=== PATIENT | male | born 1990 | race Caucasian/White ===

== ENCOUNTER 2017-07-01 14:58 | Emergency (ER) | payer SELFPAY ==
[~2017-07-01] VITALS: Ht 177.8 cm; Wt 82.2 kg
[2017-07-01 15:05] VITALS: Ht 177.8 cm; Wt 82.2 kg
--- NOTE | 2017-07-01 15:44 | DIAGNOSTIC IMAGING REPORT ---
CHEST ONE VIEW PORTABLE CLINICAL HISTORY: 27 years-old Male presenting with swelling of extremities. TECHNIQUE: Portable upright AP view of the chest was obtained. COMPARISON: None. FINDINGS: Cardiomediastinal silhouette normal. Lungs and pleural spaces clear. Osseous structures normal. Upper abdomen normal. IMPRESSION: 1. No acute cardiopulmonary disease. Electronically signed by: Aditya Valenzuela M.D. 07/01/2017 3:42 PM Dictated Date/Time: 07/01/2017 3:42 PM
--- NOTE | 2017-07-01 16:06 | EMERGENCY ROOM VISIT NOTE ---
History First contact with patient: 15:09 Chief Complaint: LEG PAIN,LEG INJURY Stated Complaint: FLUID IN LEGS AND HANDS History of Present Illness The patient is a 27 year old male who presents to the Emergency Room with complaints of swelling of both of his legs. The patient reports that for the past 3 days, he has had worsening swelling of both of his legs. He states the swelling is worse when he comes home from work. He states that in the past, he has had issues with his hands swelling in the morning. He states that for the past one year, he has had occasional lower abdominal pain especially when he feels like he needs to have a bowel movement. He denies any pain at this time. The patient reports he has no medical history. He is on Subutex due to history of drug abuse. He reports that he has high blood pressure but has never been on medication for this. He has been told in the past that he is borderline diabetic and states that he feels his sugar drops on occasion. He reports a family history of diabetes in his mother and heart disease in his father. He is an occasional smoker. He denies recent travel. He denies any pain in his legs. He denies chest pain, shortness of breath, nausea or vomiting. Review of Systems A complete 10 point review of systems was reviewed with the patient with pertinent positives and negatives as per history of present illness. All else were negative. Social History Smoking Status: Current Some Day Smoker Current/Historical Medications Scheduled Buprenorphine Hcl (Subutex), 1 TAB SL TID Physical Exam Vital Signs Date Time Temp Pulse Resp B/P (MAP) Pulse Ox O2 Delivery O2 Flow Rate FiO2 07/01/17 20:04 58 18 152/87 99 Room Air 07/01/17 17:12 37.3 67 18 167/97 96 Room Air 07/01/17 15:05 37.1 92 18 164/95 98 Room Air Physical Exam VITALS: Vitals are noted on the nurse's note and reviewed by myself. Vital signs stable. GENERAL: This is a 27-year-old male, in no acute distress, nondiaphoretic, well- developed well-nourished. SKIN: The skin was without rashes. EARS: External auditory canals clear, tympanic membranes pearly tiwari without erythema or effusion bilaterally. EYES: Pupils equal round and reactive to light and accommodation. Conjunctivae without injection, sclerae without icterus. MOUTH: Mucous membranes moist. HEART: Regular rate and rhythm without murmurs gallops or rubs. LUNGS: Clear to auscultation bilaterally without wheezes, rales or rhonchi. No retractions or accessory muscle use. EXTREMITIES: 1+ pitting edema to bilateral lower extremities. The swelling of the right leg extends up the calf but not beyond the knee. The swelling of the left leg extends at the ankle. Dorsalis pedis pulses 2+. NEURO: Patient was alert and oriented to person place and time. Normal sensation to light and sharp touch. Medical Decision & Procedures ER Provider Diagnostic Interpretation: CHEST ONE VIEW PORTABLE FINDINGS: Cardiomediastinal silhouette normal. Lungs and pleural spaces clear. Osseous structures normal. Upper abdomen normal. IMPRESSION: 1. No acute cardiopulmonary disease. VENOUS DOPPLER LWR EXT BILA IMPRESSION: No evidence of deep venous thrombosis. ABD/PELVIS NO IV OR ORAL CONT IMPRESSION: 1. Diffuse edema of the body wall and mesentery are this limits evaluation in the setting of a noncontrast exam. 2. No nephrolithiasis. No hydronephrosis. 3. Splenomegaly. Laboratory Results 07/01/17 16:00 Red Blood Count 4.28, Mean Corpuscular Volume 80.4, Mean Corpuscular Hemoglobin 27.6, Mean Corpuscular Hemoglobin Concent 34.3, Mean Platelet Volume 11.2, Neutrophils (%) (Auto) 70.4, Lymphocytes (%) (Auto) 18.6, Monocytes (%) (Auto) 8.1, Eosinophils (%) (Auto) 2.5, Basophils (%) (Auto) 0.2, Neutrophils # (Auto) 3.89, Lymphocytes # (Auto) 1.03, Monocytes # (Auto) 0.45, Eosinophils # (Auto) 0.14, Basophils # (Auto) 0.01 07/01/17 16:00 07/01/17 17:07 Test 07/01/17 16:00 07/01/17 16:02 07/01/17 17:07 White Blood Count 5.53 K/uL (4.8-10.8) Red Blood Count 4.28 M/uL (4.7-6.1) Hemoglobin 11.8 g/dL (14.0-18.0) Hematocrit 34.4 % (42-52) Mean Corpuscular Volume 80.4 fL (80-100) Mean Corpuscular Hemoglobin 27.6 pg (25-34) Mean Corpuscular Hemoglobin Concent 34.3 g/dl (32-36) Platelet Count 123 K/uL (130-400) Mean Platelet Volume 11.2 fL (7.4-10.4) Neutrophils (%) (Auto) 70.4 % Lymphocytes (%) (Auto) 18.6 % Monocytes (%) (Auto) 8.1 % Eosinophils (%) (Auto) 2.5 % Basophils (%) (Auto) 0.2 % Neutrophils # (Auto) 3.89 K/uL (1.4-6.5) Lymphocytes # (Auto) 1.03 K/uL (1.2-3.4) Monocytes # (Auto) 0.45 K/uL (0.11-0.59) Eosinophils # (Auto) 0.14 K/uL (0-0.5) Basophils # (Auto) 0.01 K/uL (0-0.2) RDW Standard Deviation 41.0 fL (36.4-46.3) RDW Coefficient of Variation 13.8 % (11.5-14.5) Immature Granulocyte % (Auto) 0.2 % Immature Granulocyte # (Auto) 0.01 K/uL (0.00-0.02) Anion Gap 4.0 mmol/L (3-11) Est Creatinine Clear Calc Drug Dose 73.2 ml/min Estimated GFR () 68.9 Estimated GFR (Non- 59.5 BUN/Creatinine Ratio 21.6 (10-20) Calcium Level 8.0 mg/dl (8.5-10.1) Total Bilirubin 0.3 mg/dl (0.2-1) Alanine Aminotransferase (ALT/SGPT) 18 U/L (12-78) Alkaline Phosphatase 56 U/L (45-117) Pro-B-Type Natriuretic Peptide 801 pg/ml (0-450) Total Protein 5.8 gm/dl (6.4-8.2) Albumin 2.4 gm/dl (3.4-5.0) Thyroid Stimulating Hormone (TSH) 3.490 uIu/ml (0.300-4.500) Urine Color DK YELLOW Urine Appearance CLOUDY (CLEAR) Urine pH 5.0 (4.5-7.5) Urine Specific [place] 1.032 (1.000-1.030) Urine Protein 4+ (NEG) Urine Glucose (UA) NEG (NEG) Urine Ketones TRACE (NEG) Urine Occult Blood 3+ (NEG) Urine Nitrite NEG (NEG) Urine Bilirubin NEG (NEG) Urine Urobilinogen NEG (NEG) Urine Leukocyte Esterase TRACE (NEG) Urine WBC (Auto) >30 /hpf (0-5) Urine RBC (Auto) 10-30 /hpf (0-4) Urine Hyaline Casts (Auto) 10-30 /lpf (0-5) Urine Epithelial Cells (Auto) >30 /lpf (0-5) Urine Bacteria (Auto) NEG (NEG) Urine Renal Epithelial Cells 0-5 /lpf (0-5) Urine Pathogenic Casts See comments /lpf (0) Urine Mucus PRESENT (NONE PRSENT) Urine Yeast (Auto) (NONE PRSENT) Direct Bilirubin mg/dl (0-0.2) Aspartate Amino Transf (AST/SGOT) U/L (15-37) Medical Decision Differential diagnosis includes CHF, cirrhosis, peripheral vascular disease, nephrotic syndrome, thyroid myxedema, lymphedema, DVT, among others. The patient is a 27-year-old male who presents today complaining of lower extremity swelling. The patient has had bilateral leg swelling for the past 3 days. Exam shows 1+ pitting edema bilaterally. Labs reveal a mild leukocytosis. Creatinine is elevated at 1.58 and BUN at 34. Albumin found to be low at 2.4. Patient is in a euthyroid state. Urinalysis revealed 3+ occult blood as well as 4+ protein. Urinalysis was otherwise suggestive of contamination versus infection. Due to the patient's findings of elevated creatinine, hypoalbuminemia, proteinuria and hematuria as well as his recent history of hypertension, I became concerned for renal pathology. Noncontrast CT was performed and this shows body wall edema. The patient has no major complaints at this time. He is not short of breath and has no pain. His only complaint today is the swelling of his lower legs. The patient does admit that in the past, he has had some issues with swelling of his hands and on previous hospital visits, he was told that he had blood in his urine and they were unsure why. I do feel the patient will need urgent evaluation by a negotiator sales, but do not feel that he necessarily needs to be admitted for this workup. Case management was consulted and will attempt to make the patient an appointment with nephrology within the week. If he is not able to make this appointment, I do feel the patient should return and may need admission to the hospital at that time for fear of worsening symptoms and development of renal failure. The patient's case was reviewed with Dr. Sanchez, ED attending physician, who agreed with my assessment and treatment plan. Based on the patient's presentation and work up, I feel the patient is stable for outpatient treatment. The patient was educated to return to the emergency department for any worsening of their current condition or new/concerning symptoms. He will follow up with nephrology. Medication Reconcilliation Current Medication List: was personally reviewed by me Blood Pressure Screening Patient's blood pressure: Elevated blood pressure Blood pressure disposition: Referred to PCP Impression Primary Impression: Lower extremity edema Additional Impression: Elevated serum creatinine Departure Information Dispostion Home / Self-Care Condition GOOD Referrals No Doctor, Assigned (PCP) Patient Instructions My [facility] Additional Instructions Case management will be contacting you tomorrow with an appointment with nephrology. They are not able to make this appointment, he may need to return here for admission. You may elevate the legs to reduce swelling. Return to the emergency department with any shortness of breath, worsening swelling, chest pain or any other new/concerning symptoms. Problem Qualifiers
[2017-07-01 16:13] LABS: URINE APPEARANCE CLOUDY (CLEAR); URINE BILIRUBIN NEG (NEG); URINE COLOR DK YELLOW; URINE EPITHELIAL CELL AUTO >30 /lpf (0-5); URINE NITRITE NEG (NEG); URINE SPECIFIC GRAVITY 1.032 (1.000-1.030); UROBILINOGEN NEG (NEG); ZZUR CULT IF INDIC CLEAN CATCH YES
[2017-07-01 16:16] LABS: BASO % 0.2 %; BASO ABS # 0.01 K/uL (0-0.2); COMPLETE YES; EOS % 2.5 %; HEMATOCRIT 34.4 % (42-52); IG% 0.2 %; LYMPH % 18.6 %; LYMPH ABS # 1.03 K/uL (1.2-3.4); MEAN CELL VOLUME 80.4 fL (80-100); MEAN CORPUSCULAR HEMOGLOBIN 27.6 pg (25-34); MEAN CORPUSCULAR HGB CONC 34.3 g/dl (32-36); MEAN PLATELET VOLUME 11.2 fL (7.4-10.4); MONO % 8.1 %; NEUT % 70.4 %; PLATELET COUNT 123 K/uL (130-400); RED BLOOD COUNT 4.28 M/uL (4.7-6.1); WHITE BLOOD COUNT 5.53 K/uL (4.8-10.8)
[2017-07-01 16:33] LABS: MANUAL MICROSCOPIC REQUIRED? NO; REVIEW REQ? YES
[2017-07-01 16:47] LABS: ALKALINE PHOSPHATASE 56 U/L (45-117); ALT/SGPT 18 U/L (12-78); BLOOD UREA NITROGEN 34 mg/dl (7-18); BUN/CREATININE RATIO 21.6 (10-20); CARBON DIOXIDE 27 mmol/L (21-32); CHLORIDE 108 mmol/L (98-107); CREATININE 1.58 mg/dl (0.60-1.40); GLUCOSE 94 mg/dl (70-99); SODIUM 139 mmol/L (136-145)
[2017-07-01 16:58] LABS: URINE MUCUS PRESENT (NONE PRSENT)
--- NOTE | 2017-07-01 17:01 | DIAGNOSTIC IMAGING REPORT ---
VENOUS DOPPLER LWR EXT BILA CLINICAL HISTORY: 27 years-old Male presenting with b/l leg swelling. TECHNIQUE: Real-time grayscale and color and spectral Doppler ultrasound imaging of the veins of the bilateral lower extremities was performed. Compression and augmentation were also utilized. COMPARISON: None. FINDINGS: Right: Common femoral vein: Patent. Greater saphenous vein: Patent. Deep femoral vein: Patent. Femoral vein: Patent. Popliteal vein: Patent. Calf veins: Patent. Left: Common femoral vein: Patent. Greater saphenous vein: Patent. Deep femoral vein: Patent. Femoral vein: Patent. Popliteal vein: Patent. Calf veins: Patent. Other: 1.4 x 2.0 x 0.6 cm right popliteal cyst. IMPRESSION: No evidence of deep venous thrombosis. Electronically signed by: Aditya Valenzuela M.D. 07/01/2017 4:59 PM Dictated Date/Time: 07/01/2017 4:58 PM
[2017-07-01 17:12] VITALS: TEMP 37.3
[2017-07-01] MEDS ORDERED: BUPR8SUB19 SL (17:27)
--- NOTE | 2017-07-01 19:01 | DIAGNOSTIC IMAGING REPORT ---
ABD/PELVIS NO IV OR ORAL CONT CLINICAL HISTORY: 27 years-old Male presenting with elevated bun/cr, hematuria, leg swelling. TECHNIQUE: Multidetector CT of the abdomen and pelvis was performed without the use of intravenous contrast. IV contrast: None. A dose lowering technique was used consistent with the principles of ALARA (as low as reasonably achievable). COMPARISON: None. CT DOSE (mGy.cm): The estimated cumulative dose is 348.19 mGy.cm. FINDINGS: Bundle Packer topogram: Unremarkable. Lung bases: Minimal dependent changes likely atelectasis. Normal heart size. Intraventricular blood pool is less dense than adjacent myocardium consistent with anemia. No pericardial or pleural effusion. Liver: Normal morphology. Normal density. Biliary: No gross biliary ductal dilatation allowing for noncontrast technique. Normal gallbladder. Pancreas: Normal noncontrast appearance. Spleen: Enlarged, measuring 14 cm in maximal sagittal dimension. Adrenal glands: Normal. Kidneys and ureters: Normal. No hydronephrosis. Ureters poorly visualized secondary to mesenteric edema and a paucity of intra-abdominal fat. Bladder: Normal. Pelvic organs: Prostate and seminal vesicles normal. Bowel: Mild stool burden. Normal appendix. No bowel obstruction. Poorly visualized secondary to diffuse edema. Peritoneal cavity: Trace free fluid in the pelvis. Diffuse mesenteric edema. Lymph nodes: No gross lymphadenopathy allowing for noncontrast technique. Vasculature: Normal noncontrast appearance. Abdominal wall: Diffuse body wall edema. Musculoskeletal: Normal. IMPRESSION: 1. Diffuse edema of the body wall and mesentery are this limits evaluation in the setting of a noncontrast exam. 2. No nephrolithiasis. No hydronephrosis. 3. Splenomegaly. Electronically signed by: Aditya Valenzuela M.D. 07/01/2017 6:59 PM Dictated Date/Time: 07/01/2017 6:52 PM
[2017-07-01 20:04] VITALS: BP 152/87; PULSE 58; O2SAT 99
== END 2017-07-01 20:20 | disposition home or self-care (01) ==
LOC: C.EDB 14:59
DX: R60.0 Localized edema (principal); R79.89 Other specified abnormal findings of blood chemistry; Z79.891 Long term (current) use of opiate analgesic; Z72.0 Tobacco use; Z83.3 Family history of diabetes mellitus; Z82.49 Family history of ischemic heart disease and other diseases of the circulatory system